=== PATIENT | female | born 1940 | race Two or more races ===

== ENCOUNTER 2018-07-08 22:27 | Observation (INO) | payer MEDICARE, BC ==
[~2018-07-08] VITALS: Ht 157.5 cm; Wt 64.5 kg
[~2018-07-08 22:27] MED LIST changes: -AMLO2.5T5 PO; -ASPI81TA45 PO; -CHOL5000 PO; -CITA10TA4 PO; -FENO160T PO; -INSU100I11 SQ-INSULIN; -INSU100I13 SQ-INSULIN; -TRAZ-137 PO
--- NOTE | 2018-07-08 22:55 | NUR ---
PER DAUGHTER 'NOT ACTING RIGHT'. PT C/O OF TONGUE AND BODY FEELING HEAVY. BROUGHT IN BY JOE, PER MEDIC PT WAS ABLE TO STAND AND MOVE TO STRETCHER. DAUGHTER STATES PT DID NOT GET MORNING DOSE OF LANTUS, 20 UNITS, AND BS WAS 212. JOE RETESTED AND GOT 229. PT IS AA&O, NO DISTRESS NOTED, GIVEN CALL LIGHT, SAFETY MEASURES IN PLACE Addendum: 07/08/18 at 2304 by PORSHA PT GIVEN 300CC NS BOLUS BY JOE
--- NOTE | 2018-07-08 23:16 | NUR ---
PT AMBULATED TO BATHROOM WITH STEADY GAIT
[2018-07-08 23:38] LABS: BASOPHILS # (AUTO) 0.01 x10^3/uL (0-0.1); BASOPHILS % (AUTO) 0 % (0-1); EOSINOPHILS % (AUTO) 1 % (1-7); LYMPHOCYTES # (AUTO) 1.95 x10^3/uL (1-3.4); LYMPHOCYTES % (AUTO) 22 % (22-44); MD NO; MEAN CORPUSCULAR HEMOGLOBIN 32.1 pg (27.0-34.8); MEAN CORPUSCULAR HGB CONC 34.8 g/dL (32.4-35.8); MEAN CORPUSCULAR VOLUME 92.1 fL (80-100); MEAN PLATELET VOLUME 8.7 fL (7.4-10.4); MONOCYTES # (AUTO) 0.69 x10^3/uL (0.2-0.8); MONOCYTES % (AUTO) 8 % (2-9); NEUTROPHILS # (AUTO) 6.28 x10^3/uL (1.8-6.8); NEUTROPHILS % (AUTO) 70 % (42-75); PLATELET COUNT 250 x10^3/uL (130-400); RED BLOOD COUNT 4.43 x10^6/uL (3.82-5.3); RED CELL DISTRIBUTION WIDTH 13.4 % (9.6-15.2)
--- NOTE | 2018-07-08 23:47 | NUR ---
PT TO CT
[2018-07-08 23:49] LABS: ALANINE AMINOTRANSFERASE 23 U/L (12-78); ALBUMIN 3.3 g/dL (3.4-5.0); ANION GAP 5 mmol/L (5-15); CALCIUM 8.5 mg/dL (8.5-10.1); CHLORIDE 109 mmol/L (98-107)
[2018-07-08 23:54] LABS: ALKALINE PHOSPHATASE 97 U/L (45-117); BILIRUBIN,TOTAL 1.1 mg/dL (0.2-1.0); TOTAL PROTEIN 7.1 g/dL (6.4-8.2); TROPONIN I < 0.015 ng/mL (0.000-0.045)
[2018-07-09] LABS: MICROSCOPIC AUTO
[2018-07-09 00:05] LABS: CULTURE INDICATED? YES
--- NOTE | 2018-07-09 00:19 | NUR ---
PT RESTING QUIETLY, NO DISTRESS NOTED, DAUGHTER AT BEDSIDE
[2018-07-09] MEDS ORDERED: INSU100I13 SQ-INSULIN (01:44)
[2018-07-09] MEDS ORDERED: TRAZ-137 PO (01:45)
[2018-07-09] MEDS ORDERED: CITA10TA4 PO (01:47)
[2018-07-09] MEDS ORDERED: FENO160T PO (01:48)
[2018-07-09] MEDS ORDERED: CHOL5000 PO (01:49)
--- NOTE | 2018-07-09 01:53 | NUR ---
PT SLEEPING, NO DISTRESS NOTED, AWAITING ADMISSION ORDER, CALL LIGHT IN REACH
--- NOTE | 2018-07-09 02:48 | NUR ---
SPOKE WITH DAUGHTER, EXPLAINED PT IS BEING ADMITTED BUT WILL REMAIN IN ER FOR THE NIGHT AND WILL BE TAKEN CARE OF HERE. VOICED UNDERSTANDING, PT IN NO DISTRESS, CALL LIGHT IN REACH
--- NOTE | 2018-07-09 03:59 | NUR ---
PT SLEEPING, NO DISTESS NOTED, DAUGHTER AT BEDSIDE
--- NOTE | 2018-07-09 04:12 | NUR ---
HOSPITALIST AT BEDSIDE
[2018-07-09] MEDS ORDERED: SODIUM CHLORIDE 0.9% 1,000 ML IV SCH (04:19)
[2018-07-09] MEDS ORDERED: ACETAMINOPHEN 325 MG TABLET PO PRN ×2 (04:30→07:30)
[2018-07-09] MEDS ORDERED: ONDANSETRON 2MG/ML, 2ML IVPush PRN (04:30)
[2018-07-09] MEDS ORDERED: DEXTROSE 4 GM TAB.CHEW PO PRN (04:30)
[2018-07-09] MEDS ORDERED: GLUCAGON 1 MG IM PRN (04:30)
[2018-07-09] MEDS ORDERED: DEXTROSE 50%, 50ML SYRINGE IVPush PRN (04:30)
--- NOTE | 2018-07-09 04:30 | NUR ---
HOSPITALIST DONE, PT MOVED TO HOSPITAL BED AND GIVEN PILLOW. CALL LIGHT IN REACH, IV FLUIDS STARTED PER eMAR
[2018-07-09] MEDS: ASPIRIN 81 MG TABLET EC PO SCH (06:00)
--- NOTE | 2018-07-09 06:01 | NUR ---
PT RESTING QUIETLY WATCHING TV, NO DISTRESS NOTED, NO COMPLAINTS VOICED, CALL LIGHT IN REACH
[2018-07-09 06:07] LABS: CHOL/HDL RATIO 7.1; LDL/HDL RATIO 3.9 (0.5-3.0)
[2018-07-09] MEDS ORDERED: ASPIRIN 81 MG TABLET EC ONE (06:19)
--- NOTE | 2018-07-09 07:01 | NUR ---
SBAR REPORT FROM BETHANY WILLARD. PT AMBULATORY TO BATHROOM WITH STEADY GAIT.
--- NOTE | 2018-07-09 07:06 | NUR ---
PT BACK TO BED. CP MONITORS IN PLACE. CALL LIGHT IN REACH. ALL CONCERNS ADRESSED.
[2018-07-09] MEDS ORDERED: ENOXAPARIN 30 MG/0.3 ML SQ SCH (09:00)
[2018-07-09] MEDS: INSULIN GLARGINE 100 UNITS/ML, PEN SQ-INSULIN SCH ×2 (09:10→18:26)
--- NOTE | 2018-07-09 09:13 | NUR ---
MEAL TRAY PROVIDED TO PT.
--- NOTE | 2018-07-09 09:15 | NUR ---
MEDS REQUESTED FROM PHARMACY
[2018-07-09] MEDS: CAPTOPRIL 50 MG TABLET PO SCH ×2 (10:54→20:50)
[2018-07-09] MEDS: CHOLECALCIFEROL 5,000u TAB PO SCH (10:54)
[2018-07-09] MEDS: SODIUM CHLORIDE FLUSH 10ML SYR IVF SCH ×2 (10:55→20:50)
--- NOTE | 2018-07-09 11:16 | NUR ---
PT MOVED TO ROOM 25. SBAR TO ROSENDO WILLARD.
[2018-07-09 12:49] VITALS: BP 132/72
[2018-07-09] MEDS: ENOXAPARIN 40 MG/0.4 ML SQ SCH (15:22)
[2018-07-09 20:00] VITALS: BP 128/68
[2018-07-09] MEDS ORDERED: ATORVASTATIN 40 MG TABLET PO SCH (21:00)
[2018-07-09] MEDS: INSULIN LISPRO 100 UNITS/ML, PEN SQ-INSULIN SCH (22:13)
[2018-07-10 01:23] VITALS: BP 157/66
[2018-07-10] MEDS: ASPIRIN 81 MG TABLET EC PO SCH (06:30)
[2018-07-10 06:37] LABS: HEMOGLOBIN A1C 8.3 % (4.2-6.3)
[2018-07-10] MEDS: INSULIN LISPRO 100 UNITS/ML, PEN SQ-INSULIN SCH ×3 (07:00→16:00)
[2018-07-10] MEDS ORDERED: INSULIN LISPRO 100 UNITS/ML, PEN SQ-INSULIN SCH (07:00)
[2018-07-10 07:33] VITALS: BP 154/63
[2018-07-10] MEDS: CAPTOPRIL 50 MG TABLET PO SCH (09:00)
[2018-07-10] MEDS ORDERED: AMLODIPINE 2.5 MG TABLET PO SCH (09:00)
[2018-07-10] MEDS: CHOLECALCIFEROL 5,000u TAB PO SCH (10:05)
[2018-07-10] MEDS: INSULIN GLARGINE 100 UNITS/ML, PEN SQ-INSULIN SCH (10:07)
[2018-07-10] MEDS: SODIUM CHLORIDE FLUSH 10ML SYR IVF SCH (10:08)
[2018-07-10] MEDS ORDERED: ASPI81TA45 PO (10:15)
[2018-07-10] MEDS ORDERED: AMLO2.5T5 PO (10:15)
[2018-07-10] MEDS ORDERED: ATOR40TA78 PO (10:15)
[2018-07-10] MEDS ORDERED: INSU100I11 SQ-INSULIN (10:15)
[2018-07-10 13:52] VITALS: BP 149/67
[2018-07-10] MEDS: ENOXAPARIN 40 MG/0.4 ML SQ SCH (15:52)
== END 2018-07-10 18:46 | disposition home or self-care (01) ==
LOC: ED 07-09 00:01 → INTOOBSV 07-09 01:25 → EDIP 07-09 01:25 → 4EST 07-09 14:47
PROVIDERS: ADMIT Hospitalist; ATTEND Hospitalist
DX: G45.9 Transient cerebral ischemic attack, unspecified (principal); E11.65 Type 2 diabetes mellitus with hyperglycemia; E78.5 Hyperlipidemia, unspecified; G46.0 Middle cerebral artery syndrome; G47.00 Insomnia, unspecified; I11.0 Hypertensive heart disease with heart failure; I50.32 Chronic diastolic (congestive) heart failure; I63.9 Cerebral infarction, unspecified; K21.9 Gastro-esophageal reflux disease without esophagitis; M81.0 Age-related osteoporosis without current pathological fracture; Z79.4 Long term (current) use of insulin; Z86.73 Personal history of transient ischemic attack (TIA), and cerebral infarction without residual deficits; Z79.899 Other long term (current) drug therapy
CPT/HCPCS: 36415; 70450; 70551; 80053; 80061; 81001; 82962; 83036; 84484; 85025; 87086; 93005; 93306; 93880; 96360; 96361; 96372; 97162; 97165; 99284; G0378; J1650; J1815; J7030

== ENCOUNTER → 2018-07-08 | Outpatient (CLI) | payer MEDICARE, BC ==
[~2018-07-08] MED LIST: ACID1TAB3 PO; AMLO-150 PO; AMLO2.5T5 PO; ASPI81TA45 PO; ATOR40TA78 PO; CAPT50TA3 PO; CARV6.252 PO; CEFU500T PO; CHOL5000 PO; CITA10TA4 PO; CITA20TA9 PO; DOCU-131 PO; DOXY100T PO; ENOX40SY4 SQ; FENO145T30 PO; FENO160T PO; GLIP5TAB10 PO; GUAI200T3 PO; HYDR15SO3 PO; INSU100I11 SQ-INSULIN; INSU100I13 SQ-INSULIN; LEVO750T26 PO; METF500T PO; METF500T17 PO; OMEP-110 PO; POLY17PO5 PO; PROM5SYR PO; SITA1TAB PO; TRAM50TA2 PO; TRAZ-137 PO; ZOLP5TAB6 PO
== END | disposition home or self-care (01) ==
LOC: CFH 15:46
PROVIDERS: ATTEND Family Medicine
DX: Z12.31 Encounter for screening mammogram for malignant neoplasm of breast (principal); R31.9 Hematuria, unspecified
CPT/HCPCS: 76770; 77067

== ENCOUNTER 2018-08-26 12:55 | Outpatient (CLI) | payer MEDICARE, BC ==
[~2018-08-26 12:55] MED LIST changes: +AMLO2.5T5 PO; +ASPI81TA45 PO; +CHOL5000 PO; +CITA10TA4 PO; +FENO160T PO; +INSU100I11 SQ-INSULIN; +INSU100I13 SQ-INSULIN; +TRAZ-137 PO
== END 2018-08-26 23:59 | disposition home or self-care (01) ==
LOC: CVU 12:55
PROVIDERS: ATTEND Internal Medicine Cardiovascular Disease
DX: M79.18 Myalgia, other site (principal); I10 Essential (primary) hypertension; E11.9 Type 2 diabetes mellitus without complications; M79.662 Pain in left lower leg; M79.661 Pain in right lower leg; E78.5 Hyperlipidemia, unspecified; Z86.73 Personal history of transient ischemic attack (TIA), and cerebral infarction without residual deficits
CPT/HCPCS: 93922

== ENCOUNTER → 2018-10-29 | Outpatient (CLI) | payer MEDICARE, BC | END | disposition home or self-care (01) | LOC: CFH 08:03 | PROVIDERS: ATTEND Family Medicine | DX: S32.029A Unspecified fracture of second lumbar vertebra, initial encounter for closed fracture (principal); M85.89 Other specified disorders of bone density and structure, multiple sites; X58.XXXA Exposure to other specified factors, initial encounter; Y93.89 Activity, other specified; Y92.89 Other specified places as the place of occurrence of the external cause; Y99.8 Other external cause status | CPT/HCPCS: 77080 ==